=== PATIENT | male | born 1955 | race Caucasian/White ===

== ENCOUNTER 2016-08-07 10:27 | Inpatient (IN) | payer OTHER ==
--- NOTE | 2016-08-07 11:05 | EDM.PDOC ---
<Shyann Estrada - Last Filed: 08/07/16 12:53> ED HPI GENERAL MEDICAL PROBLEM - General Stated Complaint: DEHYDRATION Time Seen by Provider: 08/07/16 10:35 - History of Present Illness INITIAL COMMENTS - FREE TEXT/NARRATIVE: History of present illness: [ 60year-old male with history of hypertension presents to ED with polyuria x 4 days. He states that his stool has blood in stools bright red in color. He denies dysuria, frequency, urgency, abdominal pain, chest pain, sob, palpitations, weight loss.. He did not say he is diabetic but his doctor put him on metformin 1.5 week ago in hospital for special care. ] Review of systems: As per history of present illness and below otherwise all systems reviewed and negative. Past medical history: As per history of present illness and as reviewed below otherwise noncontributory. Surgical history: As per history of present illness and as reviewed below otherwise noncontributory. Social history: No reported history of drug or alcohol abuse. Family history: As per history of present illness and as reviewed below otherwise noncontributory. Physical exam: General: Well developed, well nourished in NAD HEENT: Atraumatic, normocephalic, pupils reactive, negative for conjunctival pallor or scleral icterus, mucous membranes moist, throat clear, neck supple, nontender, trachea midline. Lungs: Clear to auscultation, breath sounds equal bilaterally, chest nontender. Heart: S1S2, regular, negative for clicks, rubs, or JVD. Abdomen: Soft, nondistended, nontender. Negative for masses or hepatosplenomegaly. Negative for costovertebral tenderness. Pelvis: Stable nontender. Genitourinary: Deferred. Rectal: external hemorrhoid noted. No prostate enlargement or mass felt. Hemoccult negative. Extremities: Atraumatic, negative for cords or calf pain. Neurovascular unremarkable. Neuro: Awake, alert, oriented. Cranial nerves II through XII unremarkable. Cerebellum unremarkable. Motor and sensory unremarkable throughout. Exam nonfocal. Diagnostics: [CBC, CMP, UA glucose 1000, no ketones, serum ketones, Hemoccult : negative, EKG , check digoxin] Therapeutics: [IVF bolus and insulin drip] Impression: Diabetes (Hyperglycemia Hyperglycemic state) Hyperglycemia Hyperkalemia Pseudo hyponatremia Dehydration] Plan: [ADMIT for hydration and insulin drip] Definitive disposition and diagnosis as appropriate pending reevaluation and review of above. - Related Data Allergies Allergy/AdvReac Type Severity Reaction Status Date / Time No Known Allergies Allergy Verified 08/07/16 10:55 Home Meds: Home Meds Aspirin 1 tab PO DAILY 08/07/16 [History] Digoxin [Digox] 250 mcg PO DAILY 08/07/16 [History] Metoprolol Tartrate 1 tab PO DAILY 08/07/16 [History] Saw/Vit E/Sod Josey/Lyc/Beta/Pyg [Prostate Health Caplet] 1 tab PO DAILY 08/07/16 [History] atorvaSTATin [Lipitor] 1 tab PO DAILY 08/07/16 [History] metFORMIN HCl [Metformin HCl] 1 tab PO BID 08/07/16 [History] ED ROS GENERAL - Review of Systems Review Of Systems: See Below (See history of present illness) ED EXAM, GENERAL - Physical Exam Exam: See Below (History of present illness) Course - Vital Signs Last Recorded V/S: Last Vital Signs Temp 36.3 C 08/07/16 11:00 Pulse 98 08/07/16 11:00 Resp 18 08/07/16 11:00 BP 170/91 H 08/07/16 11:00 Pulse Ox 94 L 08/07/16 11:00 - Orders/Labs/Meds Orders: Active Orders 24 hr Category Date Time Status Patient Status [ADT] Stat ADT 08/07/16 13:02 Ordered Cardiac Monitoring [RC] . DIRECTED Care 08/07/16 12:53 Active EKG Documentation Completion [RC] STAT Care 08/07/16 12:51 Active Fecal Occult Blood Collection [RC] ASDIRECTED Care 08/07/16 11:40 Inactive Oxygen Therapy, ED [RC] ASDIRECTED Care 08/07/16 12:53 Active Pulse Oximetry [RC] ASDIRECTED Care 08/07/16 12:53 Active CULTURE URINE [RM] Stat Lab 08/07/16 11:07 Received DIGOXIN [CHEM] Stat Lab 08/07/16 12:12 Received KETONES,BLOOD [CHEM] Stat Lab 08/07/16 12:12 Received Sodium Chloride 0.9% [Normal Saline] 1,000 ml Med 08/07/16 12:51 Active IV STAT Sodium Chloride 0.9% [Saline Flush] Med 08/07/16 12:51 Active 10 ml FLUSH ASDIRECTED PRN Sodium Chloride 0.9% [Saline Flush] Med 08/07/16 12:51 Active 2.5 ml FLUSH ASDIRECTED PRN Saline Lock Insert [OM.PC] Stat Oth 08/07/16 12:51 Ordered Medication Orders Sodium Chloride (Normal Saline) 1,000 mls @ 999 mls/hr IV STAT ONE Stop: 08/07/16 13:51 Sodium Chloride (Saline Flush) 10 ml FLUSH ASDIRECTED PRN PRN Reason: Keep Vein Open Sodium Chloride (Saline Flush) 2.5 ml FLUSH ASDIRECTED PRN PRN Reason: Keep Vein Open Labs: Laboratory Tests 08/07/16 08/07/16 08/07/16 Range/Units 11:07 11:16 12:12 WBC 11.77 H (4.0-11.0) K/uL RBC 4.49 L (4.50-5.90) M/uL Hgb 13.4 (13.0-17.0) g/dL Hct 37.4 L (38.0-50.0) % MCV 83.3 (80.0-98.0) fL MCH 29.8 (27.0-32.0) pg MCHC 35.8 (31.0-37.0) g/dL RDW Std Deviation 39.9 (28.0-62.0) fl RDW Coeff of Chin 14 (11.0-15.0) % Plt Count 285 (150-400) K/uL MPV 13.20 H (7.40-12.00) fL Add Manual Diff YES Neutrophils % (Manual) 89 H (48.0-80.0) % Lymphocytes % (Manual) 8 L (16.0-40.0) % Monocytes % (Manual) 3 (0.0-15.0) % Absolute Seg Neuts 10.5 Lymphocytes # (Manual) 0.9 Monocytes # (Manual) 0.4 Sodium 119 L* (136-146) mmol/L Potassium 6.4 H (3.5-5.1) mmol/L Chloride 83 L (98-110) mmol/L Carbon Dioxide 20 L (21-31) mmol/L BUN 64 H (6.0-23.0) mg/dL Creatinine 2.2 H (0.6-1.5) mg/dL Est Cr Clr Drug Dosing 30.67 mL/min Estimated GFR (MDRD) 30.6 ml/min Glucose 1177 H* (60-110) mg/dL Hemoglobin A1c (0.0-6.0) % Calcium 10.5 (8.8-10.8) mg/dL Total Bilirubin 1.5 (0.1-1.5) mg/dL AST 20 (5-40) IU/L ALT 45 (8-54) IU/L Alkaline Phosphatase 303 H (40-150) Total Protein 7.9 (6.0-8.0) g/dL Albumin 4.7 (3.4-4.8) g/dL Globulin 3.2 (2.0-3.5) g/dL Albumin/Globulin Ratio 1.5 (1.3-2.8) Urine Color YELLOW Urine Appearance CLEAR Urine pH 5.5 (5.0-8.0) Ur Specific [place] <= 1.005 (1.001-1.035) Urine Protein NEGATIVE (NEGATIVE) mg/dL Urine Glucose (UA) >=1000 (NEGATIVE) mg/dL Urine Ketones NEGATIVE (NEGATIVE) mg/dL Urine Occult Blood NEGATIVE (NEGATIVE) Urine Nitrite NEGATIVE (NEGATIVE) Urine Bilirubin NEGATIVE (NEGATIVE) Urine Urobilinogen 0.2 (<2.0) EU/dL Ur Leukocyte Esterase NEGATIVE (NEGATIVE) Urine RBC 0-1 (0-2/HPF) Urine WBC 0-2 (0-5/HPF) Ur Epithelial Cells RARE (NONE-FEW) Urine Bacteria RARE (NEGATIVE) 08/07/16 Range/Units 12:12 WBC (4.0-11.0) K/uL RBC (4.50-5.90) M/uL Hgb (13.0-17.0) g/dL Hct (38.0-50.0) % MCV (80.0-98.0) fL MCH (27.0-32.0) pg MCHC (31.0-37.0) g/dL RDW Std Deviation (28.0-62.0) fl RDW Coeff of Chin (11.0-15.0) % Plt Count (150-400) K/uL MPV (7.40-12.00) fL Add Manual Diff Neutrophils % (Manual) (48.0-80.0) % Lymphocytes % (Manual) (16.0-40.0) % Monocytes % (Manual) (0.0-15.0) % Absolute Seg Neuts Lymphocytes # (Manual) Monocytes # (Manual) Sodium (136-146) mmol/L Potassium (3.5-5.1) mmol/L Chloride (98-110) mmol/L Carbon Dioxide (21-31) mmol/L BUN (6.0-23.0) mg/dL Creatinine (0.6-1.5) mg/dL Est Cr Clr Drug Dosing mL/min Estimated GFR (MDRD) ml/min Glucose (60-110) mg/dL Hemoglobin A1c 12.3 H (0.0-6.0) % Calcium (8.8-10.8) mg/dL Total Bilirubin (0.1-1.5) mg/dL AST (5-40) IU/L ALT (8-54) IU/L Alkaline Phosphatase (40-150) Total Protein (6.0-8.0) g/dL Albumin (3.4-4.8) g/dL Globulin (2.0-3.5) g/dL Albumin/Globulin Ratio (1.3-2.8) Urine Color Urine Appearance Urine pH (5.0-8.0) Ur Specific [place] (1.001-1.035) Urine Protein (NEGATIVE) mg/dL Urine Glucose (UA) (NEGATIVE) mg/dL Urine Ketones (NEGATIVE) mg/dL Urine Occult Blood (NEGATIVE) Urine Nitrite (NEGATIVE) Urine Bilirubin (NEGATIVE) Urine Urobilinogen (<2.0) EU/dL Ur Leukocyte Esterase (NEGATIVE) Urine RBC (0-2/HPF) Urine WBC (0-5/HPF) Ur Epithelial Cells (NONE-FEW) Urine Bacteria (NEGATIVE) Meds: Medications Generic Name Dose Route Start Last Admin Trade Name Freq PRN Reason Stop Dose Admin Sodium Chloride 1,000 mls @ 999 mls/hr 08/07/16 12:51 Normal Saline IV 08/07/16 13:51 STAT ONE Sodium Chloride 10 ml 08/07/16 12:51 Saline Flush FLUSH ASDIRECTED PRN Keep Vein Open Sodium Chloride 2.5 ml 08/07/16 12:51 Saline Flush FLUSH ASDIRECTED PRN Keep Vein Open Departure - Departure Time of Disposition: 13:00 Disposition: Admitted As Inpatient 65 Condition: fair Clinical Impression: Hyperglycemia without ketosis Referrals: PCP,None [Primary Care Provider] - - My Orders Last 24 Hours: My Active Orders 08/07/16 11:07 CULTURE URINE [RM] Stat 08/07/16 12:12 DIGOXIN [CHEM] Stat KETONES,BLOOD [CHEM] Stat 08/07/16 12:51 EKG Documentation Completion [RC] STAT Sodium Chloride 0.9% [Normal Saline] 1,000 ml IV STAT Sodium Chloride 0.9% [Saline Flush] 10 ml FLUSH ASDIRECTED PRN Sodium Chloride 0.9% [Saline Flush] 2.5 ml FLUSH ASDIRECTED PRN Saline Lock Insert [OM.PC] Stat 08/07/16 12:53 Cardiac Monitoring [RC] . DIRECTED Oxygen Therapy, ED [RC] ASDIRECTED Pulse Oximetry [RC] ASDIRECTED 08/07/16 13:02 Patient Status [ADT] Stat - Assessment/Plan Last 24 Hours: My Active Orders 08/07/16 11:07 CULTURE URINE [RM] Stat 08/07/16 12:12 DIGOXIN [CHEM] Stat KETONES,BLOOD [CHEM] Stat 08/07/16 12:51 EKG Documentation Completion [RC] STAT Sodium Chloride 0.9% [Normal Saline] 1,000 ml IV STAT Sodium Chloride 0.9% [Saline Flush] 10 ml FLUSH ASDIRECTED PRN Sodium Chloride 0.9% [Saline Flush] 2.5 ml FLUSH ASDIRECTED PRN Saline Lock Insert [OM.PC] Stat 08/07/16 12:53 Cardiac Monitoring [RC] . DIRECTED Oxygen Therapy, ED [RC] ASDIRECTED Pulse Oximetry [RC] ASDIRECTED 08/07/16 13:02 Patient Status [ADT] Stat <Brooklynn Sifuentes - Last Filed: 08/07/16 13:06> ED HPI GENERAL MEDICAL PROBLEM - History of Present Illness INITIAL COMMENTS - FREE TEXT/NARRATIVE: This is Dr. Sifuentes dictating an addendum note as a supervising physician on this case. I have seen this patient and evaluated him independently and he states to me that he saw a doctor at [facility] in [facility] and had tests done that indicated he needs to start metformin. He never said he was diagnosed with diabetes but was told that he did take this medication. His been on metformin for a week and a half. He presents with these urinary symptoms but has no burning or pain no hematuria and no flank pain no abdominal pain no fevers chills or vomiting. We will proceed with the workup as above and we have offered him followup in our clinic or he can return to his provider that initially prescribed metformin. Labs have been reviewed and they were discussed with the patient. The case was also discussed with our hospitalist Dr. Wade at 12:57 PM. The patient is likely in a hyperosmolar hyperglycemic state and she will be admitted to the ICU fluid resuscitation and insulin drip. He is aware of this care plan and is agreeable. We have also added to his labs a digoxin level and hemoglobin A1c serum ketones and an EKG. Critical care time excluding procedures:31min Impression hyperosmolar hyperglycemic state Course - Orders/Labs/Meds Meds: Medications Generic Name Dose Route Start Last Admin Trade Name Freq PRN Reason Stop Dose Admin Sodium Chloride 1,000 mls @ 999 mls/hr 08/07/16 12:51 Normal Saline IV 08/07/16 13:51 STAT ONE Sodium Chloride 10 ml 08/07/16 12:51 Saline Flush FLUSH ASDIRECTED PRN Keep Vein Open Sodium Chloride 2.5 ml 08/07/16 12:51 Saline Flush FLUSH ASDIRECTED PRN Keep Vein Open
[2016-08-07] MEDS ORDERED: Sodium Chloride 0.9% 2.5 ML Syringe FLUSH PRN (12:51)
[2016-08-07] MEDS ORDERED: Sodium Chloride 0.9% 10 ML Syringe FLUSH PRN (12:51)
[2016-08-07] MEDS ORDERED: Sodium Chloride 0.9% 1,000 ML IV ONE (12:51)
[2016-08-07] MEDS ORDERED: Sodium Chloride 0.45% 1,000 ML IV SCH (15:15)
--- NOTE | 2016-08-07 15:18 | PCM.HP ---
H&P History of Present Illness - History of Present Illness Initial Comments - Free Text/Narative: 60 yo male with pmh of coronary artery disease with [place] and CABG five years ago. He presents with several week history of increase thirst and urination. A doctor in [place] had prescribed him metformin. He has been drinking alot of juice and milk due to his thirst. He presents to [facility] ED due to the increase in urination where he was noted to have a glucose of glucose of 1177. - Related Data Allergies/Adverse Reactions: Allergies Allergy/AdvReac Type Severity Reaction Status Date / Time No Known Allergies Allergy Verified 08/07/16 10:55 Home Medications: Home Meds Aspirin 325 mg PO DAILY 08/07/16 [History] Digoxin [Digox] 250 mcg PO DAILY 08/07/16 [History] Metoprolol Tartrate 25 mg PO BID 08/07/16 [History] Saw/Vit E/Sod Josey/Lyc/Beta/Pyg [Prostate Health Caplet] 1 tab PO DAILY 08/07/16 [History] atorvaSTATin [Lipitor] 20 mg PO DAILY 08/07/16 [History] metFORMIN HCl [Metformin HCl] 500 mg PO BID 08/07/16 [History] Past Medical History HEENT History: Reports: Impaired vision Cardiovascular History: Reports: Bypass, High cholesterol, Hypertension, Prior cardiac arrest Endocrine/Metabolic History: Reports: Diabetes, type II - Infectious Disease History Infectious Disease History: Reports: Chicken pox - Past Surgical History Head Surgeries/Procedures: Reports: None Cardiovascular Surgical History: Reports: Vascular surgery Social & Family History - Tobacco Use Smoking Status *Q: Former Smoker Second Hand Smoke Exposure: No - Caffeine Use Caffeine Use: Reports: Coffee, Soda - Recreational Drug Use Recreational Drug Use: No H&P Review of Systems - Review of Systems: Review Of Systems: See Below General: Reports: no symptoms HEENT: Reports: no symptoms Pulmonary: Reports: No Symptoms Cardiovascular: Reports: no symptoms Gastrointestinal: Reports: Other (blood in stool). Denies: Abdominal pain, Anorexia, Black stool Genitourinary: Reports: frequency Musculoskeletal: Reports: no symptoms Skin: Reports: no symptoms Psychiatric: Reports: no symptoms Neurological: Reports: No Symptoms Hematologic/Lymphatic: Reports: no symptoms Immunologic: Reports: no symptoms Exam - Exam Exam: See Below - Vital Signs Vital Signs: Last Vital Signs Temp 36.3 C 08/07/16 11:00 Pulse 98 08/07/16 11:00 Resp 14 08/07/16 15:00 BP 133/83 08/07/16 15:00 Pulse Ox 97 08/07/16 15:00 Weight: 72.3 kg - Exam General: alert, oriented, 4 Neck: supple, trachea midline. No: JVD Lungs: Clear to auscultation, Normal respiratory effort Cardiovascular: regular rate, regular rhythm Abdomen: normal bowel sounds, soft Extremities: normal inspection. No: cyanosis, edema Skin: warm, dry, intact Neurological: No: focal deficit - Patient Data Lab Results last 24 hrs: Laboratory Results - last 24 hr 08/07/16 08/07/16 08/07/16 Range/Units 13:24 14:07 15:02 POC Glucose > 500 H > 500 H (60-110) mg/dL Troponin I < 0.10 (0.0-0.29) NG/ML Result Diagrams: 08/08/16 04:35 08/08/16 04:35 EKG INTERPRETATION Rhythm: NSR Rate (beats/min): 97 P-wave: present *Q Meaningful Use (ADM) - VTE *Q VTE Criteria *Q: - Stroke *Q Stroke Criteria *Q: - AMI *Q AMI Criteria *Q: Problem List Initiated/Reviewed/Updated: Yes Orders Last 24hrs: Active Orders 24 hr Category Date Time Status NPO Now [Nothing per Oral Now Diet] [DIET] Diet 08/07/16 Dinner Ordered BMP [BASIC METABOLIC PANEL,BMP] [CHEM] Q4H Lab 08/07/16 16:00 Ordered BMP [BASIC METABOLIC PANEL,BMP] [CHEM] Q4H Lab 08/07/16 20:00 Ordered BMP [BASIC METABOLIC PANEL,BMP] [CHEM] Q4H Lab 08/08/16 00:00 Ordered BMP [BASIC METABOLIC PANEL,BMP] [CHEM] Q4H Lab 08/08/16 04:00 Ordered Insulin Regular, Human [NovoLIN R] 100 unit Med 08/07/16 13:30 Active Sodium Chloride 0.9% [Normal Saline] 99 ml IV TITRATE Pantoprazole [Protonix IV] 40 mg Med 08/07/16 15:15 Ordered Sodium Chloride 0.9% [Normal Saline] 10 ml IVPUSH Q12H Sodium Chloride 0.45% @ 150 MLS/HR(1,000ml) Med 08/07/16 15:15 Ordered Sodium Chloride 0.45% 1,000 ml IV ASDIRECTED Medication Orders Insulin Human Regular 100 unit (/ Sodium Chloride) 100 mls @ 7.78 mls/hr IV TITRATE ELMO; 0.1 UNIT/KG/HR PRN Reason: Protocol Last Admin: 08/07/16 13:29 Dose: 0.1 unit/kg/hr, 7.78 mls/hr Sodium Chloride (Sodium Chloride 0.45%) 1,000 mls @ 150 mls/hr IV ASDIRECTED ELMO Sodium Chloride (Saline Flush) 10 ml FLUSH ASDIRECTED PRN PRN Reason: Keep Vein Open Sodium Chloride (Saline Flush) 2.5 ml FLUSH ASDIRECTED PRN PRN Reason: Keep Vein Open Assessment/Plan Comment:: 60 yo male with new onset Diabetes who presents with severe hyperglycemia, dehydration, renal insufficiency and pseudohyonatremia. We will treat with insulin drip. I spoke with Dr. Sellers who recommended IV fluids of 1/2 NS and q4 BMPs.
[2016-08-07] MEDS: Pantoprazole 40 MG in Sodium Chloride 0.9% 10 ML IVPUSH SCH (16:08)
[2016-08-07] MEDS ORDERED: Metoprolol Tartrate 50 MG Tab PO SCH (19:00)
[2016-08-07] MEDS: Metoprolol Tartrate 25 MG Tab PO SCH (21:56)
[2016-08-07] MEDS ORDERED: Insulin Aspart 100 Units/ML 3 ML Pen SUBCUT ONE (22:25)
[2016-08-07] MEDS: Sodium Chloride 0.45% 1,000 ML IV SCH (23:48)
[2016-08-08] MEDS: Insulin Aspart 100 Units/ML 3 ML Pen SUBCUT SCH ×5 (00:03→16:01)
[2016-08-08] MEDS: Pantoprazole 40 MG in Sodium Chloride 0.9% 10 ML IVPUSH SCH ×2 (03:01→15:06)
[2016-08-08 05:35] LABS: CHLORIDE,CL 99 mmol/L (98-110); SODIUM,NA 130 mmol/L (136-146)
[2016-08-08] MEDS: Metoprolol Tartrate 25 MG Tab PO SCH ×2 (08:08→20:53)
[2016-08-08] MEDS: Digoxin 250 MCG Tab PO SCH (08:08)
[2016-08-08] MEDS: Sodium Chloride 0.45% 1,000 ML IV SCH (08:18)
[2016-08-08] MEDS ORDERED: Heparin Sodium 5,000 Units/ML Vial SUBCUT SCH (09:25)
--- NOTE | 2016-08-08 09:25 | PCM.PN ---
- General Info Date of Service: 08/08/16 Admission Dx/Problem (Free Text): Hyperosmolar hyperglycemic state (HHS) Subjective Update: Patient feeling better this morning. No nausea, was able to eat breakfast this morning. Would like to be full code status. No sob, chest pain, or palpitations. No edema. Tired did not sleep well secondary to labs. Functional Status: Reports: pain controlled, tolerating diet, urinating - Review of Systems General: Reports: Weakness, Fatigue, Malaise. Denies: Fever, Night Sweats HEENT: Denies: sinus congestion, sore throat Pulmonary: Denies: shortness of breath, hemoptysis, wheezing Cardiovascular: Denies: Chest Pain, Palpitations Gastrointestinal: Denies: Abdominal pain, Constipation Genitourinary: Denies: dysuria Musculoskeletal: Denies: neck pain, foot pain Skin: Denies: cyanosis Neurological: Denies: Confusion, Dizziness, Headache Psychiatric: Denies: confusion - Patient Data Vitals - most recent: Last Vital Signs Temp 36.9 C 08/08/16 08:00 Pulse 63 08/08/16 08:08 Resp 16 08/08/16 08:00 BP 104/69 08/08/16 08:08 Pulse Ox 93 L 08/08/16 08:00 Weight - most recent: 72.3 kg I&O - last 24 hours: Intake & Output 08/07/16 08/08/16 08/08/16 22:59 06:59 14:59 Intake Total 2110 3010 1000 Output Total 820 1000 Balance 1290 2010 1000 Lab Results last 24 hrs: Laboratory Results - last 24 hr 08/07/16 08/07/16 08/07/16 Range/Units 13:24 14:07 15:02 WBC (4.0-11.0) K/uL RBC (4.50-5.90) M/uL Hgb (13.0-17.0) g/dL Hct (38.0-50.0) % MCV (80.0-98.0) fL MCH (27.0-32.0) pg MCHC (31.0-37.0) g/dL RDW Std Deviation (28.0-62.0) fl RDW Coeff of Chin (11.0-15.0) % Plt Count (150-400) K/uL MPV (7.40-12.00) fL Neut % (Auto) (48.0-80.0) % Lymph % (Auto) (16.0-40.0) % [place]ah % (Auto) (0.0-15.0) % Eos % (Auto) (0.0-7.0) % Baso % (Auto) (0.0-1.5) % Neut # (Auto) (1.4-5.7) K/uL Lymph # (Auto) (0.6-2.4) K/uL Sequ[place]ah # (Auto) (0.0-0.8) K/uL Eos # (Auto) (0.0-0.7) K/uL Baso # (Auto) (0.0-0.1) K/uL Nucleated RBC % /100WBC Nucleated RBCs # K/uL Sodium (136-146) mmol/L Potassium (3.5-5.1) mmol/L Chloride (98-110) mmol/L Carbon Dioxide (21-31) mmol/L BUN (6.0-23.0) mg/dL Creatinine (0.6-1.5) mg/dL Est Cr Clr Drug Dosing mL/min Estimated GFR (MDRD) ml/min Glucose (60-110) mg/dL POC Glucose > 500 H > 500 H (60-110) mg/dL Calcium (8.8-10.8) mg/dL Phosphorus (2.4-4.7) mg/dL Magnesium (1.5-2.3) mEq/L Troponin I < 0.10 (0.0-0.29) NG/ML 08/07/16 08/07/16 08/07/16 Range/Units 16:00 17:05 20:05 WBC (4.0-11.0) K/uL RBC (4.50-5.90) M/uL Hgb (13.0-17.0) g/dL Hct (38.0-50.0) % MCV (80.0-98.0) fL MCH (27.0-32.0) pg MCHC (31.0-37.0) g/dL RDW Std Deviation (28.0-62.0) fl RDW Coeff of Chin (11.0-15.0) % Plt Count (150-400) K/uL MPV (7.40-12.00) fL Neut % (Auto) (48.0-80.0) % Lymph % (Auto) (16.0-40.0) % [place] % (Auto) (0.0-15.0) % Eos % (Auto) (0.0-7.0) % Baso % (Auto) (0.0-1.5) % Neut # (Auto) (1.4-5.7) K/uL Lymph # (Auto) (0.6-2.4) K/uL Sequ[place] # (Auto) (0.0-0.8) K/uL Eos # (Auto) (0.0-0.7) K/uL Baso # (Auto) (0.0-0.1) K/uL Nucleated RBC % /100WBC Nucleated RBCs # K/uL Sodium 132 L 136 (136-146) mmol/L Potassium 4.2 3.7 (3.5-5.1) mmol/L Chloride 95 L 100 (98-110) mmol/L Carbon Dioxide 22 24 (21-31) mmol/L BUN 56 H 46 H (6.0-23.0) mg/dL Creatinine 2.0 H 1.4 (0.6-1.5) mg/dL Est Cr Clr Drug Dosing 33.69 48.13 mL/min Estimated GFR (MDRD) 34.1 51.5 ml/min Glucose 770 H* 407 H (60-110) mg/dL POC Glucose > 500 H (60-110) mg/dL Calcium 10.3 10.0 (8.8-10.8) mg/dL Phosphorus (2.4-4.7) mg/dL Magnesium (1.5-2.3) mEq/L Troponin I (0.0-0.29) NG/ML 08/07/16 08/07/16 08/07/16 Range/Units 20:05 20:05 21:15 WBC (4.0-11.0) K/uL RBC (4.50-5.90) M/uL Hgb (13.0-17.0) g/dL Hct (38.0-50.0) % MCV (80.0-98.0) fL MCH (27.0-32.0) pg MCHC (31.0-37.0) g/dL RDW Std Deviation (28.0-62.0) fl RDW Coeff of Chin (11.0-15.0) % Plt Count (150-400) K/uL MPV (7.40-12.00) fL Neut % (Auto) (48.0-80.0) % Lymph % (Auto) (16.0-40.0) % [place] % (Auto) (0.0-15.0) % Eos % (Auto) (0.0-7.0) % Baso % (Auto) (0.0-1.5) % Neut # (Auto) (1.4-5.7) K/uL Lymph # (Auto) (0.6-2.4) K/uL [place] # (Auto) (0.0-0.8) K/uL Eos # (Auto) (0.0-0.7) K/uL Baso # (Auto) (0.0-0.1) K/uL Nucleated RBC % /100WBC Nucleated RBCs # K/uL Sodium (136-146) mmol/L Potassium (3.5-5.1) mmol/L Chloride (98-110) mmol/L Carbon Dioxide (21-31) mmol/L BUN (6.0-23.0) mg/dL Creatinine (0.6-1.5) mg/dL Est Cr Clr Drug Dosing mL/min Estimated GFR (MDRD) ml/min Glucose (60-110) mg/dL POC Glucose 371 H 292 H (60-110) mg/dL Calcium (8.8-10.8) mg/dL Phosphorus 4.8 H (2.4-4.7) mg/dL Magnesium 2.2 (1.5-2.3) mEq/L Troponin I (0.0-0.29) NG/ML 08/07/16 08/07/16 08/08/16 Range/Units 22:06 23:59 04:16 WBC (4.0-11.0) K/uL RBC (4.50-5.90) M/uL Hgb (13.0-17.0) g/dL Hct (38.0-50.0) % MCV (80.0-98.0) fL MCH (27.0-32.0) pg MCHC (31.0-37.0) g/dL RDW Std Deviation (28.0-62.0) fl RDW Coeff of Chin (11.0-15.0) % Plt Count (150-400) K/uL MPV (7.40-12.00) fL Neut % (Auto) (48.0-80.0) % Lymph % (Auto) (16.0-40.0) % [place] % (Auto) (0.0-15.0) % Eos % (Auto) (0.0-7.0) % Baso % (Auto) (0.0-1.5) % Neut # (Auto) (1.4-5.7) K/uL Lymph # (Auto) (0.6-2.4) K/uL [place] # (Auto) (0.0-0.8) K/uL Eos # (Auto) (0.0-0.7) K/uL Baso # (Auto) (0.0-0.1) K/uL Nucleated RBC % /100WBC Nucleated RBCs # K/uL Sodium (136-146) mmol/L Potassium (3.5-5.1) mmol/L Chloride (98-110) mmol/L Carbon Dioxide (21-31) mmol/L BUN (6.0-23.0) mg/dL Creatinine (0.6-1.5) mg/dL Est Cr Clr Drug Dosing mL/min Estimated GFR (MDRD) ml/min Glucose (60-110) mg/dL POC Glucose 220 H 193 H 378 H (60-110) mg/dL Calcium (8.8-10.8) mg/dL Phosphorus (2.4-4.7) mg/dL Magnesium (1.5-2.3) mEq/L Troponin I (0.0-0.29) NG/ML 08/08/16 08/08/16 08/08/16 Range/Units 04:35 04:35 04:35 WBC 8.47 (4.0-11.0) K/uL RBC 3.93 L (4.50-5.90) M/uL Hgb 11.6 L (13.0-17.0) g/dL Hct 32.8 L (38.0-50.0) % MCV 83.5 (80.0-98.0) fL MCH 29.5 (27.0-32.0) pg MCHC 35.4 (31.0-37.0) g/dL RDW Std Deviation 41.1 (28.0-62.0) fl RDW Coeff of Chin 14 (11.0-15.0) % Plt Count 225 (150-400) K/uL MPV 12.40 H (7.40-12.00) fL Neut % (Auto) 67.2 (48.0-80.0) % Lymph % (Auto) 23.5 (16.0-40.0) % [place] % (Auto) 7.8 (0.0-15.0) % Eos % (Auto) 1.3 (0.0-7.0) % Baso % (Auto) 0.2 (0.0-1.5) % Neut # (Auto) 5.7 (1.4-5.7) K/uL Lymph # (Auto) 2.0 (0.6-2.4) K/uL [place] # (Auto) 0.7 (0.0-0.8) K/uL Eos # (Auto) 0.1 (0.0-0.7) K/uL Baso # (Auto) 0.0 (0.0-0.1) K/uL Nucleated RBC % 0.0 /100WBC Nucleated RBCs # 0 K/uL Sodium 130 L (136-146) mmol/L Potassium 3.7 (3.5-5.1) mmol/L Chloride 99 (98-110) mmol/L Carbon Dioxide 23 (21-31) mmol/L BUN 36 H (6.0-23.0) mg/dL Creatinine 1.2 (0.6-1.5) mg/dL Est Cr Clr Drug Dosing 56.15 mL/min Estimated GFR (MDRD) > 60.0 ml/min Glucose 382 H (60-110) mg/dL POC Glucose (60-110) mg/dL Calcium 8.2 L (8.8-10.8) mg/dL Phosphorus 3.4 (2.4-4.7) mg/dL Magnesium 1.7 (1.5-2.3) mEq/L Troponin I (0.0-0.29) NG/ML 08/08/16 Range/Units 08:05 WBC (4.0-11.0) K/uL RBC (4.50-5.90) M/uL Hgb (13.0-17.0) g/dL Hct (38.0-50.0) % MCV (80.0-98.0) fL MCH (27.0-32.0) pg MCHC (31.0-37.0) g/dL RDW Std Deviation (28.0-62.0) fl RDW Coeff of Chin (11.0-15.0) % Plt Count (150-400) K/uL MPV (7.40-12.00) fL Neut % (Auto) (48.0-80.0) % Lymph % (Auto) (16.0-40.0) % [place] % (Auto) (0.0-15.0) % Eos % (Auto) (0.0-7.0) % Baso % (Auto) (0.0-1.5) % Neut # (Auto) (1.4-5.7) K/uL Lymph # (Auto) (0.6-2.4) K/uL [place] # (Auto) (0.0-0.8) K/uL Eos # (Auto) (0.0-0.7) K/uL Baso # (Auto) (0.0-0.1) K/uL Nucleated RBC % /100WBC Nucleated RBCs # K/uL Sodium (136-146) mmol/L Potassium (3.5-5.1) mmol/L Chloride (98-110) mmol/L Carbon Dioxide (21-31) mmol/L BUN (6.0-23.0) mg/dL Creatinine (0.6-1.5) mg/dL Est Cr Clr Drug Dosing mL/min Estimated GFR (MDRD) ml/min Glucose (60-110) mg/dL POC Glucose 219 H (60-110) mg/dL Calcium (8.8-10.8) mg/dL Phosphorus (2.4-4.7) mg/dL Magnesium (1.5-2.3) mEq/L Troponin I (0.0-0.29) NG/ML Med Orders - Current: Current Medications Digoxin (Lanoxin) 250 mcg PO DAILY [facility] Last Admin: 08/08/16 08:08 Dose: 250 mcg Heparin Sodium (Porcine) (Heparin Sodium) 5,000 units SUBCUT Q12HR [facility] Pantoprazole Sodium 40 mg/ (Sodium Chloride) 10 mls @ 300 mls/hr IVPUSH Q12H [facility] Last Admin: 08/08/16 03:01 Dose: 300 mls/hr Sodium Chloride (Sodium Chloride 0.45%) 1,000 mls @ 125 mls/hr IV ASDIRECTED [facility] Last Admin: 08/08/16 08:18 Dose: 125 mls/hr Insulin Aspart (Novolog) 0 unit SUBCUT Q4H [facility] PRN Reason: Protocol Last Admin: 08/08/16 08:07 Dose: 4 units Metoprolol Tartrate (Lopressor) 25 mg PO BID [facility] Last Admin: 08/08/16 08:08 Dose: 25 mg Sodium Chloride (Saline Flush) 10 ml FLUSH ASDIRECTED PRN PRN Reason: Keep Vein Open Sodium Chloride (Saline Flush) 2.5 ml FLUSH ASDIRECTED PRN PRN Reason: Keep Vein Open Discontinued Medications Sodium Chloride (Normal Saline) 1,000 mls @ 999 mls/hr IV STAT ONE Stop: 08/07/16 13:51 Last Admin: 08/07/16 13:28 Dose: 999 mls/hr Insulin Human Regular 100 unit (/ Sodium Chloride) 100 mls @ 7.78 mls/hr IV TITRATE [facility]; 0.1 UNIT/KG/HR PRN Reason: Protocol Last Titration: 08/07/16 22:35 Dose: 0 unit/kg/hr, 0 mls/hr Sodium Chloride (Sodium Chloride 0.45%) 1,000 mls @ 150 mls/hr IV ASDIRECTED [facility] Last Admin: 08/07/16 16:15 Dose: 150 mls/hr Insulin Aspart (Novolog) 3 unit SUBCUT ONETIME ONE Stop: 08/07/16 22:26 Last Admin: 08/07/16 22:36 Dose: 3 units Metoprolol Tartrate (Lopressor) 50 mg PO DAILY [facility] Last Admin: 08/07/16 19:26 Dose: Not Given - Exam Quality Assessment: DVT prophylaxis General: alert, oriented, cooperative, no acute distress HEENT: Pupils equal, Pupils reactive, EOMI, Mucous membr. moist/pink Neck: supple, trachea midline Lungs: Clear to auscultation, Normal respiratory effort Cardiovascular: Regular Rate, Regular Rhythm Abdomen: bowel sounds present, soft, no tenderness, no distension Back Exam: normal inspection Extremities: no edema, normal pulses, no tenderness/swelling Peripheral Pulses: 2+: radial (L), radial (R), posterior tibial (L), posterior tibial (R), dorsalis pedis (L), dorsalis pedis (R) Skin: warm, dry, intact Neurological: no new focal deficit Psy/Mental Status: alert, normal affect, normal mood - Problem List & Annotations (1) Type 2 diabetes mellitus with hyperosmolar nonketotic hyperglycemia SNOMED Code(s): 174159416, 975809818 Code(s): E11.01 - TYPE 2 DIABETES MELLITUS WITH HYPEROSMOLARITY WITH COMA Status: Acute Current Visit: Yes (2) CAD (coronary artery disease), autologous vein bypass graft SNOMED Code(s): 659544406, 987126170 Code(s): I25.810 - ATHEROSCLEROSIS OF CABG W/O ANGINA PECTORIS Status: Acute Current Visit: Yes Qualifiers: Associated angina: without angina Qualified Code(s): I25.810 - Atherosclerosis of coronary artery bypass graft(s) without angina pectoris (3) Hypertension SNOMED Code(s): 98040940 Code(s): I10 - ESSENTIAL (PRIMARY) HYPERTENSION Status: Chronic Priority : Medium Current Visit: Yes Qualifiers: Hypertension type: essential hypertension Qualified Code(s): I10 - Essential (primary) hypertension - Problem List Review Problem List Initiated/Reviewed/Updated: Yes - My Orders Last 24 Hours: My Active Orders 08/07/16 21:00 Metoprolol Tartrate [Lopressor] 25 mg PO BID 08/08/16 08:56 Consult to Rotary Helper [Consult to Diabetic Nurse Specialist] [CONS] Routine 08/08/16 09:00 Digoxin [Lanoxin] 250 mcg PO DAILY 08/08/16 09:11 Code Status [Resuscitation Status] Routine 08/08/16 21:00 Heparin Sodium 5,000 units SUBCUT Q12HR - Plan Plan:: 60 yo male admitted on 08/08/16 for HHS, acute renal failure, and pseudohyponatremia with pmh of CABG, Htn, and newly diagnosed type II diabetes. HHS: Patient did well with IVF resus with 1/2 NS and insulin. Blood sugars below 300 today. Have started Medium dose ISS. Will start Lantus at 14 units now and continue to monitor and adjust as necessary. AG 8 closed, serum osmolality 294 which is less than 315, resolution of HHS. Diabetic Ed talking with patient for insulin therapy. ARF: Most likely secondary to volume depletion. Has resolved today with CR 1.2 down from admission 2.2. Patient tolerating oral intake with place IV to tko today. CABG: History of CABG. Home meds have been restarted Metoprolol and Digoxin. Will start home aspirin as well today and statin. Htn: Stable BP today 122/73. Cont. home meds. Type II diabetes: Medium dose ISS and start Lantus 14 units. Diabetic ed consulted. Patient is on home Metfromin 500 BID which will be continued. VTE: Hemoccult negative. Started Heparin subq this am and SCD Dispo: 2-3 days pending.
[2016-08-08] MEDS: Heparin Sodium 5,000 Units/ML Vial SUBCUT SCH ×2 (10:18→20:52)
[2016-08-08] MEDS: atorvaSTATin 20 MG Tab PO SCH (11:14)
[2016-08-08] MEDS: Aspirin 325 MG Tab PO SCH (11:14)
[2016-08-08] MEDS: Insulin Glargine,Human Rec. Analog 100 Units/ML 3 ML Pen SUBCUT SCH (11:18)
[2016-08-09 06:27] LABS: CHLORIDE,CL 102 mmol/L (98-110); SODIUM,NA 133 mmol/L (136-146)
[2016-08-09] MEDS: Insulin Aspart 100 Units/ML 3 ML Pen SUBCUT SCH ×3 (07:21→18:17)
[2016-08-09 08:16] VITALS: BP 125/76
[2016-08-09] MEDS: Heparin Sodium 5,000 Units/ML Vial SUBCUT SCH (09:54)
[2016-08-09] MEDS: Digoxin 250 MCG Tab PO SCH (09:55)
[2016-08-09] MEDS: atorvaSTATin 20 MG Tab PO SCH (09:56)
[2016-08-09] MEDS: Aspirin 325 MG Tab PO SCH (09:56)
[2016-08-09] MEDS: Insulin Glargine,Human Rec. Analog 100 Units/ML 3 ML Pen SUBCUT SCH (09:56)
[2016-08-09] MEDS: Metoprolol Tartrate 25 MG Tab PO SCH (09:56)
--- NOTE | 2016-08-09 12:32 | PCM.DCSUM1 ---
Discharge Summary - Hospital Course Brief History: he was admitted with a blood sugar of 770 mg /dl. - Discharge Data Discharge Date: 08/09/16 Discharge Disposition: Home, Self-Care 01 Condition: Fair - Patient Summary/Data Consults: Consultations 08/08/16 08:56 Consult to Lost Charge Card Clerk [Consult to Diabetic Nurse Specialist] [CONS] Routine Hospital Course: he was given education he was started on an insulin drip and then changed to sliding scale short acting insulin and lantus insulin. he is improved and desires discharge on the day of discharge. - Discharge Plan Home Medications: Home Meds Aspirin 325 mg PO DAILY 08/07/16 [History] Digoxin [Digox] 250 mcg PO DAILY 08/07/16 [History] Metoprolol Tartrate 25 mg PO BID 08/07/16 [History] Saw/Vit E/Sod Josey/Lyc/Beta/Pyg [Prostate Health Caplet] 1 tab PO DAILY 08/07/16 [History] atorvaSTATin [Lipitor] 20 mg PO DAILY 08/07/16 [History] metFORMIN HCl [Metformin HCl] 500 mg PO BID 08/07/16 [History] Patient Handouts: Type 2 Diabetes Mellitus, Adult, Hyperglycemia, [id number] - Patient Data Vitals - Most Recent: Last Vital Signs Temp 98.2 F 08/09/16 08:00 Pulse 88 08/09/16 09:56 Resp 14 08/09/16 08:00 BP 125/76 08/09/16 09:56 Pulse Ox 95 08/09/16 08:00 Weight - Most Recent: 72.3 kg I&O - Last 24 hours: Intake & Output 08/08/16 08/09/16 08/09/16 22:59 06:59 14:59 Intake Total 1300 700 Output Total 420 1010 Balance 880 -310 Lab Results - Last 24 hrs: Laboratory Results - last 24 hr 08/08/16 08/09/16 08/09/16 Range/Units 15:58 05:50 05:50 WBC 7.72 (4.0-11.0) K/uL RBC 4.35 L (4.50-5.90) M/uL Hgb 12.7 L (13.0-17.0) g/dL Hct 37.4 L (38.0-50.0) % MCV 86.0 (80.0-98.0) fL MCH 29.2 (27.0-32.0) pg MCHC 34.0 (31.0-37.0) g/dL RDW Std Deviation 43.0 (28.0-62.0) fl RDW Coeff of Chin 14 (11.0-15.0) % Plt Count 203 (150-400) K/uL MPV 12.00 (7.40-12.00) fL Neut % (Auto) 64.0 (48.0-80.0) % Lymph % (Auto) 26.0 (16.0-40.0) % Wilkes % (Auto) 8.7 (0.0-15.0) % Eos % (Auto) 1.2 (0.0-7.0) % Baso % (Auto) 0.1 (0.0-1.5) % Neut # (Auto) 4.9 (1.4-5.7) K/uL Lymph # (Auto) 2.0 (0.6-2.4) K/uL [place]kes # (Auto) 0.7 (0.0-0.8) K/uL Eos # (Auto) 0.1 (0.0-0.7) K/uL Baso # (Auto) 0.0 (0.0-0.1) K/uL Nucleated RBC % 0.0 /100WBC Nucleated RBCs # 0 K/uL Sodium 133 L (136-146) mmol/L Potassium 4.2 (3.5-5.1) mmol/L Chloride 102 (98-110) mmol/L Carbon Dioxide 21 (21-31) mmol/L BUN 24 H (6.0-23.0) mg/dL Creatinine 1.0 (0.6-1.5) mg/dL Est Cr Clr Drug Dosing 67.38 mL/min Estimated GFR (MDRD) > 60.0 ml/min Glucose 276 H (60-110) mg/dL POC Glucose 312 H (60-110) mg/dL Calcium 8.1 L (8.8-10.8) mg/dL 08/09/16 Range/Units 06:19 WBC (4.0-11.0) K/uL RBC (4.50-5.90) M/uL Hgb (13.0-17.0) g/dL Hct (38.0-50.0) % MCV (80.0-98.0) fL MCH (27.0-32.0) pg MCHC (31.0-37.0) g/dL RDW Std Deviation (28.0-62.0) fl RDW Coeff of Chin (11.0-15.0) % Plt Count (150-400) K/uL MPV (7.40-12.00) fL Neut % (Auto) (48.0-80.0) % Lymph % (Auto) (16.0-40.0) % Wilkes % (Auto) (0.0-15.0) % Eos % (Auto) (0.0-7.0) % Baso % (Auto) (0.0-1.5) % Neut # (Auto) (1.4-5.7) K/uL Lymph # (Auto) (0.6-2.4) K/uL Wilkes # (Auto) (0.0-0.8) K/uL Eos # (Auto) (0.0-0.7) K/uL Baso # (Auto) (0.0-0.1) K/uL Nucleated RBC % /100WBC Nucleated RBCs # K/uL Sodium (136-146) mmol/L Potassium (3.5-5.1) mmol/L Chloride (98-110) mmol/L Carbon Dioxide (21-31) mmol/L BUN (6.0-23.0) mg/dL Creatinine (0.6-1.5) mg/dL Est Cr Clr Drug Dosing mL/min Estimated GFR (MDRD) ml/min Glucose (60-110) mg/dL POC Glucose 280 H (60-110) mg/dL Calcium (8.8-10.8) mg/dL Med Orders - Current: Current Medications Aspirin (Aspirin) 325 mg PO DAILY [facility] Last Admin: 08/09/16 09:56 Dose: 325 mg Atorvastatin Calcium (Lipitor) 20 mg PO DAILY [facility] Last Admin: 08/09/16 09:56 Dose: 20 mg Digoxin (Lanoxin) 250 mcg PO DAILY [facility] Last Admin: 08/09/16 09:55 Dose: 250 mcg Heparin Sodium (Porcine) (Heparin Sodium) 5,000 units SUBCUT Q12HR [facility] Last Admin: 08/09/16 09:54 Dose: 5,000 units Insulin Aspart (Novolog) 0 unit SUBCUT TIDAC [facility] PRN Reason: Protocol Last Admin: 08/09/16 12:01 Dose: 6 units Insulin Glargine (Lantus Solostar) 14 units SUBCUT DAILY [facility] Last Admin: 08/09/16 09:56 Dose: 14 units Metoprolol Tartrate (Lopressor) 25 mg PO BID [facility] Last Admin: 08/09/16 09:56 Dose: 25 mg Sodium Chloride (Saline Flush) 10 ml FLUSH ASDIRECTED PRN PRN Reason: Keep Vein Open Sodium Chloride (Saline Flush) 2.5 ml FLUSH ASDIRECTED PRN PRN Reason: Keep Vein Open Discontinued Medications Sodium Chloride (Normal Saline) 1,000 mls @ 999 mls/hr IV STAT ONE Stop: 08/07/16 13:51 Last Admin: 08/07/16 13:28 Dose: 999 mls/hr Insulin Human Regular 100 unit (/ Sodium Chloride) 100 mls @ 7.78 mls/hr IV TITRATE [facility]; 0.1 UNIT/KG/HR PRN Reason: Protocol Last Titration: 08/07/16 22:35 Dose: 0 unit/kg/hr, 0 mls/hr Sodium Chloride (Sodium Chloride 0.45%) 1,000 mls @ 150 mls/hr IV ASDIRECTED [facility] Last Admin: 08/07/16 16:15 Dose: 150 mls/hr Pantoprazole Sodium 40 mg/ (Sodium Chloride) 10 mls @ 300 mls/hr IVPUSH Q12H [facility] Last Admin: 08/08/16 15:06 Dose: 300 mls/hr Sodium Chloride (Sodium Chloride 0.45%) 1,000 mls @ 125 mls/hr IV ASDIRECTED [facility] Last Admin: 08/08/16 08:18 Dose: 125 mls/hr Insulin Aspart (Novolog) 3 unit SUBCUT ONETIME ONE Stop: 08/07/16 22:26 Last Admin: 08/07/16 22:36 Dose: 3 units Insulin Aspart (Novolog) 0 unit SUBCUT Q4H [facility] PRN Reason: Protocol Last Admin: 08/08/16 16:01 Dose: 8 units Metoprolol Tartrate (Lopressor) 50 mg PO DAILY [facility] Last Admin: 08/07/16 19:26 Dose: Not Given *Q Meaningful Use (DIS) - VTE *Q VTE Criteria *Q: - Stroke *Q Stroke Criteria *Q: - AMI *Q AMI Criteria *Q:
== END 2016-08-09 14:20 | disposition home or self-care (01) | DRG 638 ==
LOC: MW.ED 10:27 → MW.ICU 13:12 → MW.MS 08-08 17:08
PROVIDERS: ADMIT Internal Medicine; ATTEND Internal Medicine
DX: E11.65 Type 2 diabetes mellitus with hyperglycemia (principal); E87.1 Hypo-osmolality and hyponatremia; E87.5 Hyperkalemia; E86.0 Dehydration; I25.10 Atherosclerotic heart disease of native coronary artery without angina pectoris; I10 Essential (primary) hypertension; Z95.1 Presence of aortocoronary bypass graft
CPT/HCPCS: 36415; 80048; 80053; 80162; 81001; 82009; 82272; 82962; 83036; 83735; 84100; 84484; 85025; 87086; 93005; 97802; 99284-25; 99291; A9270-GY; C9113; J1644; J1815-GY ×2; J7030; J7040